=== PATIENT | male | born 1960 | race Caucasian/White ===

== ENCOUNTER → 2016-02-27 | Outpatient (CLI) | payer MEDICAID ==
[~2016-02-27] MED LIST: No Historical Meds
--- NOTE | 2016-02-27 12:26 | REP ---
Chest x-ray: Two views. History: Upper respiratory symptoms. Comparison study: No comparison chest x-ray. Findings: The lungs are well inflated and free of infiltrate. The pleural angles are sharp. The heart size is normal. Pulmonary vasculature is not increased. No significant bony abnormality is seen. Impression: Negative chest x-ray. Signed by Nelson Medrano MD 02/27/2016 01:43 P
--- NOTE | 2016-02-27 12:27 | REP ---
Left wrist series: Four views. History: Encounter for special exam. The patient reports left wrist pain after accident 3 years ago and surgery. No comparison radiographs. Findings: There is a metallic screw in the radial styloid transfixing a previous fracture. This appears healed. There is osteoarthritic spurring at the radiocarpal articulation on lateral radiograph. Bones, joints, and soft tissues are otherwise radiographically unremarkable. Impression: Radiocarpal osteoarthritic spurring. Metallic screw in the radial styloid from previous fracture. No acute bony abnormality. Signed by Nelson Medrano MD 02/27/2016 01:43 P
== END ==
LOC: M LAB 11:05 → M RAD 11:05
PROVIDERS: ATTEND Family Medicine Addiction Medicine
DX: Z01.89 Encounter for other specified special examinations (principal); M25.732 Osteophyte, left wrist

== ENCOUNTER → 2016-03-15 | Outpatient (CLI) | payer MEDICAID ==
[2016-03-15 08:53] LABS: BASO # 0.2 K/mm3 (0.0-0.2); BASO % 1.9 % (0.0-1.0); EOS # 0.2 K/mm3 (0.0-0.50); EOS % 2.2 % (0.0-3.0); LARGE UNSTAINED CELL # 0.3 K/mm3 (0.0-0.4); LARGE UNSTAINED CELL % 2.9 % (0.0-4.0); LYMPH # 3.9 K/mm3 (1.5-4.5); LYMPH % 33.3 % (24.0-44.0); MEAN CORPUSCULAR HEMOGLOBIN 32.3 pg (27.0-33.0); MEAN CORPUSCULAR HGB CONC 34.6 g/dl (32.0-36.5); MEAN CORPUSCULAR VOLUME 93.3 fl (80.0-96.0); MONO # 0.5 K/mm3 (0.0-0.8); MONO % 4.8 % (0.0-5.0); PLATELET COUNT, AUTOMATED 217 k/mm3 (150-450); RED CELL DISTRIBUTION WIDTH 12.5 % (11.5-14.5); WHITE BLOOD COUNT 10.9 K/mm3 (4.0-10.0)
[2016-03-15 09:24] LABS: ALBUMIN 3.9 GM/DL (3.2-5.2); ALBUMIN/GLOBULIN RATIO 1.39 (1.00-1.93); BILIRUBIN,TOTAL 0.3 MG/DL (0.2-1.0); CREATININE FOR GFR 1.35 MG/DL (0.70-1.30); GLOMERULAR FILTRATION RATE 58.4 (>56); POTASSIUM SERUM 4.4 MEQ/L (3.5-5.1); TOTAL PROTEIN 6.7 GM/DL (6.4-8.2)
== END ==
LOC: M LAB 08:12
PROVIDERS: ATTEND Family Medicine Addiction Medicine
DX: Z01.89 Encounter for other specified special examinations (principal)

== ENCOUNTER → 2016-10-12 | Outpatient (CLI) | payer OTHER ==
[2016-10-12 09:23] LABS: ALBUMIN 3.6 GM/DL (3.2-5.2); ALBUMIN/GLOBULIN RATIO 1.38 (1.00-1.93); ALKALINE PHOSPHATASE 71 U/L (45-117); ALT/SGPT 13 U/L (12-78); ANION GAP 8 MEQ/L (8-16); AST/SGOT 17 U/L (15-37); BILIRUBIN,TOTAL 0.3 MG/DL (0.2-1.0); BLOOD UREA NITROGEN 15 MG/DL (7-18); CALCIUM LEVEL 8.7 MG/DL (8.5-10.1); CARBON DIOXIDE LEVEL 26 MEQ/L (21-32); CHLORIDE LEVEL 111 MEQ/L (98-107); CREATININE FOR GFR 1.14 MG/DL (0.70-1.30); GLOMERULAR FILTRATION RATE > 60.0 (>56); GLUCOSE, FASTING 98 MG/DL (70-105); POTASSIUM SERUM 4.6 MEQ/L (3.5-5.1); SODIUM LEVEL 145 MEQ/L (136-145); TOTAL PROTEIN 6.2 GM/DL (6.4-8.2)
== END ==
LOC: M LAB 08:17
PROVIDERS: ATTEND Family Medicine Addiction Medicine
DX: N18.2 Chronic kidney disease, stage 2 (mild) (principal)

== ENCOUNTER 2017-04-26 13:28 | Emergency (ER) | payer OTHER ==
[2017-04-26] MEDS: guaiFENesin SYRUP 200 MG/10 ML UDC PO (14:41)
[2017-04-26] MEDS: IBUPROFEN 600 MG TAB PO (14:41)
[2017-04-26 14:49] LABS: INFLUENZA A AMPLIFICATION NEGATIVE (NEGATIVE); INFLUENZA B AMPLIFICATION NEGATIVE (NEGATIVE)
== END 2017-04-26 15:19 | disposition home or self-care (01) ==
LOC: M ED 13:28
DX: J06.9 Acute upper respiratory infection, unspecified (principal); R05 Cough; M79.1 Myalgia; F17.200 Nicotine dependence, unspecified, uncomplicated; Z88.5 Allergy status to narcotic agent
CPT/HCPCS: 71046